=== PATIENT | female | born 1995 | race Caucasian/White ===

== ENCOUNTER → 2021-10-19 | Outpatient (CLI) | payer BC ==
--- NOTE | 2021-10-19 11:13 | Diagnostic Imaging Report ---
INDICATION: survey. TECHNIQUE: Multiple real-time grayscale images were obtained over the gravid uterus. COMPARISON: None FINDINGS: There is a single live fetus in a transverse presentation with head to maternal left. Placenta is anterior. Placenta appears to be in a marginal location in relation to the internal cervical os. Amniotic fluid volume is normal. Cervical length is 7 cm. kidneys, bladder and stomach are unremarkable. brain is unremarkable. There is a 4 chamber heart. There is a three-vessel cord with normal insertion. spine is unremarkable. Biometrical measurements are as follows: Biparietal 4.68 cm, age 20 weeks 2 days. Head circumference 18.17 cm, age 20 weeks 5 days. Abdominal circumference 15.11 cm, age 20 weeks 3 days. Femur length 3.44 cm, age 20 weeks 6 days. Sonographic estimate age: 20 weeks 4 days. Sonographic estimated date of delivery: 03/04/2022. Estimated Weight: 361 gm (+/- 53 gm). LMP percentile: 52%. heart rate: 156 beats per minute. number: 1 of 1. IMPRESSION: Single live IUP 20 weeks 4 days gestational age. Estimated date of confinement sonographically is 03/04/2022. Marginal placenta previa. Follow-up could be performed. Dictated by: Dictated on workstation # [id number]
== END ==
LOC: RAD 10:06
PROVIDERS: ATTEND Nurse Practitioner Women's Health
DX: Z34.02 Encounter for supervision of normal first pregnancy, second trimester (principal); Z3A.20 20 weeks gestation of pregnancy
CPT/HCPCS: 76805

== ENCOUNTER 2021-11-11 09:36 | Outpatient (CLI) | payer BC ==
[~2021-11-11] VITALS: Ht 162.6 cm; Wt 69.9 kg
[2021-11-11 09:56] VITALS: BP 116/77
[2021-11-11 10:09] LABS: BILIRUBIN,URINE NEGATIVE (NEGATIVE); CLARITY,URINE SL CLOUDY; COLOR,URINE YELLOW; GLUCOSE, URINE (UA) NEGATIVE (NEGATIVE); KETONES,URINE 2+ (NEGATIVE); LEUKOCYTE ESTERASE ,URINE NEGATIVE (NEGATIVE); NITRITE,URINE NEGATIVE (NEGATIVE); PROTEIN,URINE NEGATIVE (NEGATIVE)
[2021-11-11 10:22] LABS: BACTERIA,URINE FEW /HPF; WBC,URINE 0-2 /HPF
[2021-11-11] MEDS ORDERED: CYCLOBENZAPRINE 10 MG (FLEXERIL) TAB ONE (10:50)
[2021-11-11 10:52] VITALS: BP 106/65
[2021-11-11] MEDS ORDERED: CYCLOBENZAPRINE 10 MG (FLEXERIL) TAB PO ONE (11:00)
[2021-11-11 11:22] VITALS: BP 102/64
[2021-11-11 11:52] VITALS: BP 108/70
[2021-11-11] MEDS ORDERED: PREN-37 PO (12:19)
[2021-11-11] MEDS ORDERED: CYCL5TAB PO (12:21)
--- NOTE | 2021-11-14 08:22 | Physician Query-Final Dx ---
Clinic Account Progress/Dx Physician Query: Please give diagnosis Please include # weeks gestation Date of Service Nov 11, 2021 at 09:36 JOSE,NovNov 14, 2021 08:22
== END 2021-11-11 12:30 | disposition home or self-care (01) ==
LOC: WSo 09:36 → LDRP 09:38 → WSo 12:30
PROVIDERS: ATTEND Obstetrics & Gynecology
DX: O21.9 Vomiting of pregnancy, unspecified (principal); Z3A.23 23 weeks gestation of pregnancy
CPT/HCPCS: 81000; 87088; 99214

== ENCOUNTER → 2021-12-08 | Outpatient (CLI) | payer BC ==
[~2021-12-08] MED LIST: CYCL5TAB PO; PREN-37 PO
--- NOTE | 2021-12-08 13:15 | Diagnostic Imaging Report ---
INDICATION: Marginal placenta previa. TECHNIQUE: Multiple real-time grayscale images were obtained over the gravid uterus. COMPARISON: 10/19/2021. FINDINGS: There is a single live fetus in a breech presentation. heart rate was recorded at 153 bpm. Placenta is anterior. The placenta is no longer in a marginal location with the tip of the placenta to the internal os approximately 4.5 cm. Amniotic fluid volume appears normal. Cervical length is 6.0 cm. IMPRESSION: Unremarkable follow-up ultrasound. The placenta is no longer marginal in location. Dictated by: Dictated on workstation # [id number]
== END ==
LOC: RAD 12:00
PROVIDERS: ATTEND Nurse Practitioner Women's Health
DX: O44.22 Partial placenta previa NOS or without hemorrhage, second trimester (principal); Z3A.00 Weeks of gestation of pregnancy not specified
CPT/HCPCS: 76816

== ENCOUNTER → 2022-01-12 | Outpatient (CLI) | payer BC ==
--- NOTE | 2022-01-12 14:24 | Diagnostic Imaging Report ---
INDICATION: Small for gestational age based on fundal height COMPARISON: 10/19/2021 TECHNIQUE: Multiple real-time grayscale images were obtained over the gravid uterus. FINDINGS: There is a single live intrauterine gestation in cephalic presentation. The cervix measures 6 cm in length, but is partially shadowed by the head. No significant funneling is seen. The placenta is anterior without evidence of previa. The heart rate measures 144 BPM. The amniotic fluid index measures 12.5 cm. Measurements are given below. A three-vessel cord as well seen. Biometrical measurements are as follows: Biparietal 7.95 cm, age 32 weeks 0 days. Head circumference 29.76 cm, age 33 weeks 0 days. Abdominal circumference 28.31 cm, age 32 weeks 3 days. Femur length 6.27 cm, age 32 weeks 4 days. Sonographic estimate age: 32 weeks 4 days. Sonographic estimated date of delivery: 03/05/2022. Estimated Weight: 1966 gm (+/- 287 gm). LMP percentile: 34%. heart rate: 144 beats per minute. number: 1 of 1. IMPRESSION: 1. Single live intrauterine gestation measuring at 32 weeks and 4 days which is concordant with the clinical dates. 2. Heart rate and amniotic fluid are normal. Dictated by: Dictated on workstation # [id number]
== END ==
LOC: RAD 12:00
PROVIDERS: ATTEND Obstetrics & Gynecology
DX: O26.93 Pregnancy related conditions, unspecified, third trimester (principal); Z3A.32 32 weeks gestation of pregnancy
CPT/HCPCS: 76805

== ENCOUNTER 2022-02-10 12:11 | Inpatient (IN) | payer BC ==
[2022-02-10] VITALS (47 sets, daily range): BP systolic 98–145; BP diastolic 54–90
[~2022-02-10] VITALS: Ht 162 cm; Wt 72.0 kg
--- NOTE | 2022-02-10 13:05 | Diagnostic Imaging Report ---
INDICATION: Vaginal bleeding. TECHNIQUE: Multiple real-time grayscale images were obtained over the gravid uterus. COMPARISON: 01/12/2022. FINDINGS: A single live intrauterine gestation is visualized in cephalic presentation. heart tones measure 136 BPM. The placenta is anterior and not low lying. The TIERA measures 8 cm. Biometrical measurements are as follows: Biparietal 8.44 cm, age 34 weeks 0 days. Head circumference 31.52 cm, age 35 weeks 3 days. Abdominal circumference 30.14 cm, age 34 weeks 1 days. Femur length 6.59 cm, age 34 weeks 0 days. Sonographic estimate age: 34 weeks 3 days. Sonographic estimated date of delivery: 03/21/2022. Estimated Weight: 2368 gm (+/- 346 gm). LMP percentile: 6%. heart rate: 136 beats per minute. number: 1 of 1. The cervix is not well visualized due to lack of sonographic windows. IMPRESSION: 1. Single live intrauterine gestation measuring 34 weeks 3 days with an estimated due date of 03/21/2022. These are discordant with the clinical dates. Recommend continued follow-up, as indicated. 2. The cervix is not well visualized due to lack of sonographic windows. Dictated by: Dictated on workstation # [id number]
[2022-02-10 13:55] LABS: BILIRUBIN,URINE NEGATIVE (NEGATIVE); CLARITY,URINE CLEAR; COLOR,URINE YELLOW; GLUCOSE, URINE (UA) NEGATIVE (NEGATIVE); KETONES,URINE NEGATIVE (NEGATIVE); LEUKOCYTE ESTERASE ,URINE NEGATIVE (NEGATIVE); NITRITE,URINE NEGATIVE (NEGATIVE); PROTEIN,URINE NEGATIVE (NEGATIVE)
[2022-02-10] MEDS ORDERED: CATHETER FLUSH 10 ML SYR IV SCH (14:00)
[2022-02-10] MEDS ORDERED: LIDOCAINE/EPI 2% 1:200,00 (XYLOCAINE) 20 ML VIAL INJ PRN (14:00)
[2022-02-10] MEDS ORDERED: MINERAL OIL CONCENTRATE 99.9% 15 ML UDC TOP PRN (14:00)
[2022-02-10] MEDS ORDERED: MINERAL OIL 30 ML OIL TOP PRN (14:00)
[2022-02-10 14:15] LABS: BACTERIA,URINE TRACE /HPF; RBC,URINE RARE /HPF; SQUAMOUS EPITHELIAL CELL,UR 0-2 /HPF; WBC,URINE RARE /HPF
[2022-02-10] MEDS ORDERED: OXYTOCIN PRE-MIX DRIP 500 ML IV SCH (14:15)
[2022-02-10 14:17] LABS: AMPHETAMINE SCREEN, URINE NEGATIVE (NEGATIVE); BARBITURATE SCREEN URINE NEGATIVE (NEGATIVE); BENZODIAZEPINES SCREEN URINE NEGATIVE (NEGATIVE); CANNABINOID SCREEN, URINE NEGATIVE (NEGATIVE); COCAINE SCREEN URINE NEGATIVE (NEGATIVE); METHADONE STAT NEGATIVE (NEGATIVE); METHAMPHETAMINE SCREEN URINE S NEGATIVE (NEGATIVE); OPIATE SCREEN URINE NEGATIVE (NEGATIVE); OXYCODONE STAT NEGATIVE (NEGATIVE); PROPOXYPHENE STAT NEGATIVE (NEGATIVE); TRICYCLIC ANTIDEPRESSANTS SCRE NEGATIVE (NEGATIVE)
[2022-02-10 14:30] LABS: BASOPHILS % (AUTO) 1 % (0-10); EOSINOPHILS # (AUTO) 0.1 10^3/uL (0.0-0.3); EOSINOPHILS % (AUTO) 2 % (0-10); HEMATOCRIT 30 % (35-52); HEMOGLOBIN 9.5 g/dL (11.5-16.0); LYMPHOCYTES # (AUTO) 1.6 10^3/uL (1.0-4.0); LYMPHOCYTES % (AUTO) 23 % (12-44); MEAN CORPUSCULAR HEMOGLOBIN 30 pg (25-34); MEAN CORPUSCULAR HGB CONC 32 g/dL (32-36); MEAN CORPUSCULAR VOLUME 96 fL (80-99); MEAN PLATELET VOLUME 11.7 fL (9.0-12.2); MONOCYTES # (AUTO) 0.4 10^3/uL (0.0-1.0); MONOCYTES % (AUTO) 6 % (0-12); NEUTROPHILS # (AUTO) 4.6 10^3/uL (1.8-7.8); NEUTROPHILS % (AUTO) 67 % (42-75); PLATELET COUNT 198 10^3/uL (130-400); WHITE BLOOD COUNT 6.8 10^3/uL (4.3-11.0)
[2022-02-10 14:47] LABS: ALBUMIN 3.2 GM/DL (3.2-4.5); POTASSIUM 3.8 MMOL/L (3.6-5.0)
[2022-02-10 14:48] LABS: CALCIUM 8.9 MG/DL (8.5-10.1)
[2022-02-10 14:49] LABS: TOTAL PROTEIN 6.2 GM/DL (6.4-8.2)
[2022-02-10 14:51] LABS: BILIRUBIN,TOTAL 0.5 MG/DL (0.1-1.0)
[2022-02-10 14:53] LABS: CREATININE SERUM 0.59 MG/DL (0.60-1.30)
[2022-02-10] MEDS: D5 LR IV SOLUTION 1,000 ML IV SCH ×2 (14:56→22:19)
[2022-02-10] MEDS ORDERED: BETAMETHASONE ACE/NA PHOS 6 MG/ML (CELESTONE SOLUSPAN) IM NR (15:00)
--- NOTE | 2022-02-10 16:53 | History & Physical-OB ---
OB - Chief Complaint & HPI Date/Time Date of Admission: Date of Admission: Feb 10, 2022 at 13:38 Time Seen by a Provider: 03:40 Chief Complaint/History OB-Reason for Admission/Chief: Obstetrical Complication Hx : 2 Hx Para: 0101 Expected Date of Delivery: March 05, 2022 Gestational Age in Weeks: 36 Gestational Age in Days: 5 Indication for induction: other (third trimester bleeding with IUGR) Admission Nurse Assessment Rev: Yes Allergies and Home Medications Allergies Coded Allergies: acetaminophen (Verified Allergy, Unknown, 11/11/21) Patient Home Medication List Home Medication List Reviewed: Yes Cyclobenzaprine HCl (Cyclobenzaprine HCl) 5 Mg Tablet, 5 MG PO Q8H PRN for PAIN- MODERATE (5-7) Prescribed by: SHIVAM AYALA on 11/11/21 1221 Vit/Iron Fumarate/FA ( Tablet) 1 Each Tablet, 1 EACH PO DAILY, (Reported) Entered as Reported by: SHIVAM AYALA on 11/11/21 1219 OB - History Hx of Present Care: Yes Ultrasounds: Abnormal US findings (EFW 6th%) Obstetrical Complications: Growth Restriction Medical Complications: None Information Induced Hypertension: No Maternal Gestational Diabetes: No Hemorrhage: No Obstetrical History Hx Induced Hypertens: Yes ( severe preeclampsia ) Delivery History Hx Dystocia: No Hx Forceps Assisted Delivery: No Hx Vacuum Extraction Assisted: No Hx Placenta Abnormality: No Hx Distress: No Hx Large For Gestational Age I: No Hx Small for Gestational Age I: No Hx Section: No Hx Vaginal Delivery Post C-Sec: No Hx Blood Disorders: No Adverse Rxn to Tranfusion: No Patient Past Medical History denies Immunizations Influenza Vaccine Up-to-Date: No; Not Current Hepatitis A: No Hepatitis B: No OB - Admission Exam Physical Exam Vitals: Vital Signs 02/10/22 13:40 Pulse 85 Resp 18 B/P (MAP) 115/77 (90) Pulse Ox 100 HEENT: NCAT Lungs: Clear Abdomen: Gravid Extremities: Normal Cervical Dilatation: 2cm Effacement: Other (60) Station: -3 Membranes: Intact Amniotic Fluid: Clear Heart Rate: 130's Accelerations: Accelerations Present Short Term Variability: Present Nursing Home Variability: Average (6-25) Contractions on Admission: 6-10 Minutes Apart Labs Laboratory Tests Test 02/10/22 13:35 02/10/22 13:45 Range/Units White Blood Count 6.8 4.3-11.0 10^3/uL Red Blood Count 3.15 L 3.80-5.11 10^6/uL Hemoglobin 9.5 L 11.5-16.0 g/dL Hematocrit 30 L 35-52 % Mean Corpuscular Volume 96 80-99 fL Mean Corpuscular Hemoglobin 30 25-34 pg Mean Corpuscular Hemoglobin Concent 32 32-36 g/dL Red Cell Distribution Width 14.3 10.0-14.5 % Platelet Count 198 130-400 10^3/uL Mean Platelet Volume 11.7 9.0-12.2 fL Immature Granulocyte % (Auto) 1 % Neutrophils (%) (Auto) 67 42-75 % Lymphocytes (%) (Auto) 23 12-44 % Monocytes (%) (Auto) 6 0-12 % Eosinophils (%) (Auto) 2 0-10 % Basophils (%) (Auto) 1 0-10 % Neutrophils # (Auto) 4.6 1.8-7.8 10^3/uL Lymphocytes # (Auto) 1.6 1.0-4.0 10^3/uL Monocytes # (Auto) 0.4 0.0-1.0 10^3/uL Eosinophils # (Auto) 0.1 0.0-0.3 10^3/uL Basophils # (Auto) 0.0 0.0-0.1 10^3/uL Immature Granulocyte # (Auto) 0.1 0.0-0.1 10^3/uL Sodium Level 138 135-145 MMOL/L Potassium Level 3.8 3.6-5.0 MMOL/L Chloride Level 108 H 98-107 MMOL/L Carbon Dioxide Level 17 L 21-32 MMOL/L Anion Gap 13 5-14 MMOL/L Blood Urea Nitrogen 6 L 7-18 MG/DL Creatinine 0.59 L 0.60-1.30 MG/DL Estimat Glomerular Filtration Rate 127 BUN/Creatinine Ratio 10 Glucose Level 67 L 70-105 MG/DL Calcium Level 8.9 8.5-10.1 MG/DL Corrected Calcium 9.5 8.5-10.1 MG/DL Total Bilirubin 0.5 0.1-1.0 MG/DL Aspartate Amino Transf (AST/SGOT) 16 5-34 U/L Alanine Aminotransferase (ALT/SGPT) 9 0-55 U/L Alkaline Phosphatase 336 H 40-136 U/L Total Protein 6.2 L 6.4-8.2 GM/DL Albumin 3.2 3.2-4.5 GM/DL Urine Color YELLOW Urine Clarity CLEAR Urine pH 7.0 5-9 Urine Specific [place] 1.020 1.016-1.022 Urine Protein NEGATIVE NEGATIVE Urine Glucose (UA) NEGATIVE NEGATIVE Urine Ketones NEGATIVE NEGATIVE Urine Nitrite NEGATIVE NEGATIVE Urine Bilirubin NEGATIVE NEGATIVE Urine Urobilinogen 0.2 < = 1.0 MG/DL Urine Leukocyte Esterase NEGATIVE NEGATIVE Urine RBC (Auto) 1+ H NEGATIVE Urine RBC RARE /HPF Urine WBC RARE /HPF Urine Squamous Epithelial Cells 0-2 /HPF Urine Crystals NONE /LPF Urine Bacteria TRACE /HPF Urine Casts NONE /LPF Urine Mucus NEGATIVE /LPF Urine Culture Indicated NO Urine Opiates Screen NEGATIVE NEGATIVE Urine Oxycodone Screen NEGATIVE NEGATIVE Urine Methadone Screen NEGATIVE NEGATIVE Urine Propoxyphene Screen NEGATIVE NEGATIVE Urine Barbiturates Screen NEGATIVE NEGATIVE Ur Tricyclic Antidepressants Screen NEGATIVE NEGATIVE Urine Phencyclidine Screen NEGATIVE NEGATIVE Urine Amphetamines Screen NEGATIVE NEGATIVE Urine Methamphetamines Screen NEGATIVE NEGATIVE Urine Benzodiazepines Screen NEGATIVE NEGATIVE Urine Cocaine Screen NEGATIVE NEGATIVE Urine Cannabinoids Screen NEGATIVE NEGATIVE OB - Assessment/Plan/Diagnosis Assessment Assessment: induction of labor, vaginal bleeding Admission Dx 3rd trimester bleeding, IUGR Admission Status: Inpatient Order (span 2 midnights) Reason for Inpatient Admission: Induction of labor Counseled risks of prematurity Patient agrees risks of staying outweigh risks of prematurity with bleeding of unknown cause/source and IUGR Plan Plan: Induction Induction Method: JUSTYNA VALERIO MD Feb 10, 2022 16:53
[2022-02-10] MEDS ORDERED: fentaNYL 2 mcg/ml BUPIVA 0.125 100 ML ONE (19:09)
[2022-02-10] MEDS ORDERED: BUPIVACAINE 0.25% 10 ML (SENSORCAINE) VIAL ONE (19:31)
[2022-02-10] MEDS ORDERED: fentaNYL INJ 100 MCG/2 ML AMP ONE (19:31)
[2022-02-10] MEDS: fentaNYL 2 mcg/ml BUPIVA 0.125 100 ML IV SCH (19:51)
[2022-02-10] MEDS ORDERED: CATHETER FLUSH 10 ML SYR IV PRN (20:00)
[2022-02-10] MEDS ORDERED: NALOXONE 0.4 MG/ML 1 ML (NARCAN) VIAL IV PRN (20:00)
[2022-02-10] MEDS ORDERED: LACTATED RINGERS 1,000 ML IV ONE (20:00)
[2022-02-11] VITALS (52 sets, daily range): BP systolic 85–139; BP diastolic 48–81
[2022-02-11] MEDS: fentaNYL 2 mcg/ml BUPIVA 0.125 100 ML IV SCH (02:40)
[2022-02-11] MEDS: D5 LR IV SOLUTION 1,000 ML IV SCH ×2 (05:39→10:03)
[2022-02-11] MEDS ORDERED: OXYTOCIN PRE-MIX DRIP 500 ML IV SCH ×2 (06:45)
[2022-02-11] MEDS ORDERED: MEASLES,MUMPS,RUBELLA 1 EA INJ SQ ONE (06:45)
[2022-02-11] MEDS ORDERED: BENZOCAINE/MENTHOL (DERMOPLAST) 56 ML CAN TP PRN (06:45)
[2022-02-11] MEDS ORDERED: WITCH HAZEL(TUCKS) 40 EA JAR TOP PRN (06:45)
[2022-02-11] MEDS ORDERED: NALOXONE 0.4 MG/ML 1 ML (NARCAN) VIAL IV PRN (06:45)
[2022-02-11] MEDS ORDERED: TETANUS,DIPTH,PERTUSS P/F (BOOSTRIX) 0.5 ML VIAL IM ONE (06:45)
[2022-02-11] MEDS ORDERED: ONDANSETRON 4 MG/2 ML (SDV) Z0FRAN ONE (07:49)
[2022-02-11] MEDS ORDERED: ONDANSETRON 4 MG/2 ML (SDV) Z0FRAN IVP PRN (08:00)
[2022-02-11] MEDS ORDERED: LIDOCAINE/EPI 2% 1:200,00 (XYLOCAINE) 10 ML VIAL ONE (10:21)
--- NOTE | 2022-02-11 10:51 | OB Labor & Delivery Record ---
Vag Delivery Note Vag Delivery Note Date of Delivery: 02/11/22 Preoperative Diagnosis: Chaya Quigley is a (26 /Para 2 / 0101, Gestational Age (wks)36.6days with third trimester bleeding Postoperative Diagnosis: Same, suspected placental abruption Surgeon: JUSTYNA CURTIS Anesthesia: epidural Delivery Type: Spontaneous vaginal delivery Findings: [] Viable female infant, please see nurses notes for Apgars and weight Lacerations: None Intact placenta blood clots with 3 vessel cord. body cord or shoulder dystocia Cytotec 800 mcg placed for hemorrhage prophylaxis Estimated Blood Loss: 450 ml Complications: None Condition: Stable Description of Procedure: Prior presented to the clinic with complaints of 2 days of vaginal bleeding. On speculum exam vault was full of bright red and old blood. Mucousy blood from above the level of the cervix was visualized after clearing the vault. She was sent to labor and delivery for evaluation and heart tones were found to be reactive. Sonogram showed an anterior placenta without previa, normal amniotic fluid. And intrauterine growth restriction with estimated weight at the 6th percentile. Given the new finding of IUGR and vaginal bleeding recommend proceeding with induction for suspected placental abruption. Consent was obtained from the patient after review of risks and benefits including risks of prematurity and risks of induction. Artificial rupture membranes was performed with amnio hook revealing clear fluid and Pitocin induction was initiated. Epidural was placed per her request and she had slow cervical change to 9 cm. Evaluation of her cervix in the clinic had demonstrated defect at the 9 o'clock position and throughout her labor then corresponded to complete effacement at that segment with subsequent swelling of the anterior and left side of the patient's cervix. As she was having quite a bit of discomfort with pressure and contractions and the cervix was beginning to swell so significantly decision was made to do trial of pushing. She had effective pushing and delivered a female infant in the ROP position. Several blood clots delivered with the baby. Loose nuchal x1 was delivered through. Nose and mouth were suctioned was placed on the mom's abdomen. Several additional clots passed prior to delivery of the placenta. Cord blood was drawn and cord gases were sent. The placenta then delivered intact and slight uterine atony was encountered. Pitocin was started after clamping the umbilical cord and 800 mcg of Cytotec were placed per rectum. After changing into new sterile gloves and MU was performed removing small clots and uterine tone was achieved with continued fundal massage. No cervical lacerations were visualized no vaginal or perineal lacerations were visualized. Mom and baby tolerated the procedure well. Sponge lap needle and instrument counts were correct Vitals - Labs Vital Signs - I&O Vital Signs Date Time Temp Pulse Resp B/P (MAP) Pulse Ox O2 Delivery O2 Flow Rate FiO2 02/11/22 08:30 116 20 111/66 (81) Room Air 02/11/22 08:15 110 20 110/63 (79) Room Air 02/11/22 08:00 114 20 106/59 (75) Room Air 02/11/22 07:45 129 20 90/55 (67) Room Air 02/11/22 07:40 36.5 02/11/22 07:30 126 20 90/53 (65) Room Air 02/11/22 07:15 125 20 89/54 (66) Room Air 02/11/22 07:00 136 20 85/48 (60) Room Air 02/11/22 06:45 36.0 118 20 118/64 (82) Room Air 02/11/22 06:30 150 20 116/64 (81) Room Air 02/11/22 06:15 116 20 123/78 (93) Room Air 02/11/22 06:00 109 20 132/79 (96) Room Air 02/11/22 05:45 104 20 122/74 (90) Room Air 02/11/22 05:30 100 20 126/75 (92) Room Air 02/11/22 05:15 100 20 120/74 (89) Room Air 02/11/22 05:00 100 20 122/75 (91) Room Air 02/11/22 04:45 107 20 113/69 (84) Room Air 02/11/22 04:30 96 20 122/76 (91) Room Air 02/11/22 04:15 108 20 124/63 (83) Room Air 02/11/22 04:00 36.0 106 20 120/69 (86) Room Air 02/11/22 03:45 107 20 119/71 (87) Room Air 02/11/22 03:30 112 20 130/71 (90) Room Air 02/11/22 03:15 120 20 122/75 (91) Room Air 02/11/22 03:00 105 20 117/69 (85) Room Air 02/11/22 02:45 117 20 118/70 (86) Room Air 02/11/22 02:30 111 20 120/71 (87) Room Air 02/11/22 02:15 121 20 105/65 (78) Room Air 02/11/22 02:00 106 20 126/80 (95) Room Air 02/11/22 01:45 36.0 125 20 122/75 (91) Room Air 02/11/22 01:30 113 20 123/74 (90) Room Air 02/11/22 01:15 109 20 122/74 (90) Room Air 02/11/22 01:00 110 20 118/70 (86) Room Air 02/11/22 00:44 103 20 121/68 (85) Room Air 02/11/22 00:30 36.0 102 20 105/59 (74) Room Air 02/11/22 00:15 104 20 101/59 (73) Room Air 02/11/22 00:00 102 20 115/61 (79) Room Air 02/10/22 23:45 106 20 104/74 (84) Room Air 02/10/22 23:30 106 20 104/74 (84) Room Air 02/10/22 23:15 101 20 106/64 (78) Room Air 02/10/22 23:03 105 20 98/57 (71) Room Air 02/10/22 22:45 126 20 102/63 (76) Room Air 02/10/22 22:30 36.0 115 20 104/55 (71) Room Air 02/10/22 22:15 120 20 110/62 (78) Room Air 02/10/22 22:00 96 107/56 (73) 02/10/22 21:45 100 115/68 (84) 02/10/22 21:30 98 104/54 (71) 02/10/22 21:15 116 110/67 (81) 02/10/22 21:00 120 20 117/70 (86) 02/10/22 20:45 133 20 124/65 (84) 02/10/22 20:26 141 20 112/66 (81) 02/10/22 20:20 126 111/72 (85) 02/10/22 20:17 133 120/62 (81) 02/10/22 20:10 136 123/73 (90) 02/10/22 20:02 121 119/63 (81) 02/10/22 20:00 127 113/58 (76) 02/10/22 19:55 37.4 121 138/62 (87) 99 02/10/22 19:51 115 20 132/69 (90) 100 Room Air 02/10/22 19:50 134 20 131/74 (93) 100 Room Air 02/10/22 19:45 115 130/76 (94) 100 Room Air 02/10/22 19:43 144 145/87 (106) 100 Room Air 02/10/22 19:38 117 133/89 (104) 100 Room Air 02/10/22 19:33 119 20 126/83 (97) 100 Room Air 02/10/22 18:45 103 122/80 (94) Room Air 02/10/22 18:30 104 20 121/81 (94) Room Air 02/10/22 18:15 36.9 97 20 123/74 (90) Room Air 02/10/22 18:00 113 117/82 (94) Room Air 02/10/22 17:45 103 122/80 (94) Room Air 02/10/22 17:30 101 120/80 (93) Room Air 02/10/22 17:15 103 20 125/83 (97) Room Air 02/10/22 17:00 103 20 121/78 (92) Room Air 02/10/22 16:45 108 20 125/85 (98) Room Air 02/10/22 16:30 98 132/84 (100) Room Air 02/10/22 16:15 101 127/80 (96) Room Air 02/10/22 16:00 37.0 110 131/85 (100) 100 Room Air 02/10/22 15:50 95 138/90 (106) 02/10/22 15:45 108 20 144/85 (104) 02/10/22 15:20 104 20 135/77 (96) 02/10/22 15:05 107 20 131/88 (102) 02/10/22 14:50 106 20 128/87 (101) 02/10/22 14:40 107 20 122/83 (96) 02/10/22 14:18 36.5 98 20 134/86 (102) 02/10/22 13:40 85 18 115/77 (90) 100 02/10/22 12:40 96 129/71 (90) I & O 02/11/22 07:00 Intake Total 2100 ml Balance 2100 ml Labs Laboratory Tests 02/10/22 13:35: White Blood Count 6.8, Red Blood Count 3.15L, Hemoglobin 9.5L, Hematocrit 30L, Mean Corpuscular Volume 96, Mean Corpuscular Hemoglobin 30, Mean Corpuscular Hemoglobin Concent 32, Red Cell Distribution Width 14.3, Platelet Count 198, Mean Platelet Volume 11.7, Immature Granulocyte % (Auto) 1, Neutrophils (%) (Auto) 67, Lymphocytes (%) (Auto) 23, Monocytes (%) (Auto) 6, Eosinophils (%) (Auto) 2, Basophils (%) (Auto) 1, Neutrophils # (Auto) 4.6, Lymphocytes # (Auto) 1.6, Monocytes # (Auto) 0.4, Eosinophils # (Auto) 0.1, Basophils # (Auto) 0.0, Immature Granulocyte # (Auto) 0.1, Sodium Level 138, Potassium Level 3.8, Chloride Level 108H, Carbon Dioxide Level 17L, Anion Gap 13, Blood Urea Nitrogen 6L, Creatinine 0.59L, Estimat Glomerular Filtration Rate 127, BUN/Creatinine Ratio 10, Glucose Level 67L, Calcium Level 8.9, Corrected Calcium 9.5, Total Bilirubin 0.5, Aspartate Amino Transf (AST/SGOT) 16, Alanine Aminotransferase (ALT/SGPT) 9, Alkaline Phosphatase 336H, Total Protein 6.2L, Albumin 3.2 02/10/22 13:45: Urine Color YELLOW, Urine Clarity CLEAR, Urine pH 7.0, Urine Specific [place] 1.020, Urine Protein NEGATIVE, Urine Glucose (UA) NEGATIVE, Urine Ketones NEGATIVE, Urine Nitrite NEGATIVE, Urine Bilirubin NEGATIVE, Urine Urobilinogen 0.2, Urine Leukocyte Esterase NEGATIVE, Urine RBC (Auto) 1+H, Urine RBC RARE, Urine WBC RARE, Urine Squamous Epithelial Cells 0-2, Urine Crystals NONE, Urine Bacteria TRACE, Urine Casts NONE, Urine Mucus NEGATIVE, Urine Culture Indicated NO, Urine Opiates Screen NEGATIVE, Urine Oxycodone Screen NEGATIVE, Urine Methadone Screen NEGATIVE, Urine Propoxyphene Screen NEGATIVE, Urine Barbiturates Screen NEGATIVE, Ur Tricyclic Antidepressants Screen NEGATIVE, Urine Phencyclidine Screen NEGATIVE, Urine Amphetamines Screen NEGATIVE, Urine Methamphetamines Screen NEGATIVE, Urine Benzodiazepines Screen NEGATIVE, Urine Cocaine Screen NEGATIVE, Urine Cannabinoids Screen NEGATIVE JUSTYNA CURTIS MD Feb 11, 2022 10:51
[2022-02-11] MEDS: IBUPROFEN 600 MG (MOTRIN) TAB PO SCH ×3 (11:41→23:37)
[2022-02-11] MEDS: ACETAMINOPHEN 500 MG TAB (TYLENOL) PO SCH ×2 (12:00→20:23)
[2022-02-11] MEDS ORDERED: CATHETER FLUSH 10 ML SYR IV SCH (14:00)
[2022-02-11] MEDS ORDERED: BETAMETHASONE ACE/NA PHOS 6 MG/ML (CELESTONE SOLUSPAN) IM NR (15:00)
[2022-02-11 16:24] LABS: HEMOGLOBIN 8.8 g/dL (11.5-16.0)
[2022-02-11] MEDS ORDERED: DIBUCAINE 1% OINTMENT 30 GM TUBE TOP PRN (19:15)
[2022-02-11] MEDS ORDERED: DIBUCAINE 1% OINTMENT 30 GM TUBE ONE (20:19)
[2022-02-11] MEDS: DOCUSATE SODIUM 100 MG (COLACE) CAP PO SCH (20:22)
[2022-02-12 00:10] VITALS: BP 115/59
[2022-02-12 04:00] VITALS: BP 129/60
[2022-02-12] MEDS: IBUPROFEN 600 MG (MOTRIN) TAB PO SCH ×4 (05:47→23:52)
[2022-02-12] MEDS: ACETAMINOPHEN 500 MG TAB (TYLENOL) PO SCH ×2 (05:47→06:02)
[2022-02-12] MEDS: DOCUSATE SODIUM 100 MG (COLACE) CAP PO SCH ×3 (06:01→23:52)
[2022-02-12 06:15] LABS: BASOPHILS % (AUTO) 0 % (0-10); EOSINOPHILS # (AUTO) 0.2 10^3/uL (0.0-0.3); EOSINOPHILS % (AUTO) 1 % (0-10); HEMATOCRIT 25 % (35-52); LYMPHOCYTES # (AUTO) 2.1 10^3/uL (1.0-4.0); LYMPHOCYTES % (AUTO) 17 % (12-44); MEAN CORPUSCULAR HEMOGLOBIN 31 pg (25-34); MEAN CORPUSCULAR HGB CONC 33 g/dL (32-36); MEAN CORPUSCULAR VOLUME 97 fL (80-99); MEAN PLATELET VOLUME 11.6 fL (9.0-12.2); MONOCYTES # (AUTO) 0.7 10^3/uL (0.0-1.0); MONOCYTES % (AUTO) 6 % (0-12); NEUTROPHILS # (AUTO) 9.4 10^3/uL (1.8-7.8); NEUTROPHILS % (AUTO) 75 % (42-75); PLATELET COUNT 172 10^3/uL (130-400); WHITE BLOOD COUNT 12.6 10^3/uL (4.3-11.0)
[2022-02-12 08:15] VITALS: BP 121/71
[2022-02-12] MEDS ORDERED: IBUP-844 PO (08:17)
--- NOTE | 2022-02-12 08:22 | Postpartum Progress Note ---
Note Note Day # [1] Subjective: Patient is without complaints. Ambulating, voiding. Tolerating a regular diet without nausea or vomiting. Normal lochia. Pain is well controlled with oral pain medications. [] feeding. [] only pain is her hemorrhoid - using tucks and ice packs Objective: [] Physical Exam: General - Alert and oriented, no apparent distress Abdomen - Soft, appropriately tender to palpation, non-distended, fundus firm at umbilicus Extremities - no edema, negative Girish's bilaterally Assessment: [] post- day # [1], status post [] vaginal delivery. Recovering well, hemodynamically stable Plan: Routine care. Encourage breast feeding. Encourage ambulation. Ferrous sulfate supplementation. Plan for discharge [today depending on status] Vitals - Labs Vital Signs - I&O Vital Signs Date Time Temp Pulse Resp B/P (MAP) Pulse Ox O2 Delivery O2 Flow Rate FiO2 02/12/22 04:00 36.5 85 18 129/60 (83) 99 Room Air 02/12/22 00:10 36.9 75 18 115/59 (77) 99 Room Air 02/11/22 20:48 36.9 86 18 133/81 (98) 99 Room Air 02/11/22 16:00 36.5 99 18 131/79 (96) 99 Room Air 02/11/22 12:13 106 20 126/78 (94) Room Air 02/11/22 11:59 123 20 129/78 (95) Room Air 02/11/22 11:43 122 20 126/76 (93) Room Air 02/11/22 11:30 121 20 123/73 (90) Room Air 02/11/22 11:15 37.6 113 20 120/80 (93) Room Air 02/11/22 11:00 125 20 130/65 (86) Room Air 02/11/22 10:45 123 20 139/63 (88) Room Air 02/11/22 10:30 139 20 127/61 (83) Room Air 02/11/22 10:15 122/59 (80) 02/11/22 10:00 133 20 122/56 (78) Room Air 02/11/22 09:45 160 20 114/59 (77) Room Air 02/11/22 09:30 127 20 116/74 (88) Room Air 02/11/22 09:15 121 20 114/75 (88) Room Air 02/11/22 09:00 114 20 111/72 (85) Room Air 02/11/22 08:45 36.6 134 20 123/66 (85) Room Air 02/11/22 08:30 116 20 111/66 (81) Room Air I & O 02/12/22 07:00 Intake Total 1550 ml Balance 1550 ml Labs Laboratory Tests 02/11/22 16:15: Hemoglobin 8.8L, Hematocrit 27L 02/12/22 05:32: Hemoglobin 8.0L, Hematocrit 25L, White Blood Count 12.6H, Red Blood Count 2.55L, Mean Corpuscular Volume 97, Mean Corpuscular Hemoglobin 31, Mean Corpuscular Hemoglobin Concent 33, Red Cell Distribution Width 14.5, Platelet Count 172, Mean Platelet Volume 11.6, Immature Granulocyte % (Auto) 1, Neutrophils (%) (Auto) 75, Lymphocytes (%) (Auto) 17, Monocytes (%) (Auto) 6, Eosinophils (%) (Auto) 1, Basophils (%) (Auto) 0, Neutrophils # (Auto) 9.4H, Lymphocytes # (Auto) 2.1, Monocytes # (Auto) 0.7, Eosinophils # (Auto) 0.2, Basophils # (Auto) 0.0, Immature Granulocyte # (Auto) 0.1 JUSTYNA CURTIS MD Feb 12, 2022 08:22
--- NOTE | 2022-02-12 08:55 | Anesthesia-Regional Post-Op ---
Regional Patient Condition Mental Status: Alert, Oriented x3 Circulation: Same as Pre-Op Headache: Absent Sensation: Full Recovery Motor Block: Absent Post Op Complications Complications None Follow Up Care/Instructions Patient Instructions None needed. Anesthesia/Patient Condition Patient is doing well, no complaints, stable vital signs, no apparent adverse anesthesia problems. No complications reported per nursing. D/C home per [facility] [place] Criteria: Yes ASTON CARDOZA CRNA Feb 12, 2022 08:55
[2022-02-12 12:00] VITALS: BP 114/77
[2022-02-12 16:15] VITALS: BP 117/78
[2022-02-12 23:51] VITALS: BP 125/80
[2022-02-13 05:08] VITALS: BP 122/72
[2022-02-13] MEDS: IBUPROFEN 600 MG (MOTRIN) TAB PO SCH ×2 (05:09→10:32)
[2022-02-13 10:30] VITALS: BP 128/88
[2022-02-13] MEDS: DOCUSATE SODIUM 100 MG (COLACE) CAP PO SCH (10:32)
--- NOTE | 2022-02-14 10:53 | Physician Query Clarification ---
PQ-Intro New Diagnosis Admission/Discharge Admission Date: Feb 10, 2022 at 13:38 Discharge Date: Feb 13, 2022 at 17:30 Dr. Curtis, The medical record reflects the following clinical scenario: History/Risk Factors: placenta abruption, 3rd trimester bleeding Clinical Findings: 36.6 weeks at time of delivery Treatment: Question: What condition best reflects the above clinical scenario? delivery Please document a response in the Progress Noter or Discharge Summary. 1. delivery 2. Term delivery 3. Other, with explanation of the clinical findings. 4. Clinically undetermined, no explanation for the clinical findings. Please remember a lack of response to the above will prompt a phone page by [facility]/Coding staff. In responding to this query, please exercise your independent professional judgment. The purpose of this communication is to more accurately reflect the complexity of your patients condition. The fact that a question is asked does not imply that any particular answer is desired or expected. Thank you for your timely response to this clarification. Requestors name: Soledad THIS PHYSICIAN QUERY FORM IS A PERMANENT PART OF THE MEDICAL RECORD SOLEDAD DE LA ROSA Feb 14, 2022 10:53 JUSTYNA CURTIS MD Feb 16, 2022 07:25
--- NOTE | 2022-02-14 11:01 | Physician Query Clarification ---
PQ-Intro New Diagnosis Admission/Discharge Admission Date: Feb 10, 2022 at 13:38 Discharge Date: Feb 13, 2022 at 17:30 Dr. Curtis, The medical record reflects the following clinical scenario: History/Risk Factors: placenta abruption, 3rd trimester bleeding Clinical Findings: hgb/hct 9.5/30>8.0/25 Treatment: ferrous sulfate Question: What condition best reflects the above clinical scenario? Please document a response in the Progress Noter or Discharge Summary. 1. acute blood loss anemia 2. no anemia 3. Other, with explanation of the clinical findings. 4. Clinically undetermined, no explanation for the clinical findings. PHYSICIAN RESPONSE What condition reflects above: Other, explanation/clinical finding (acute blood loss anemi superimposed gestational anemia) Please remember a lack of response to the above will prompt a phone page by [facility] staff. In responding to this query, please exercise your independent professional judgment. The purpose of this communication is to more accurately reflect the complexity of your patients condition. The fact that a question is asked does not imply that any particular answer is desired or expected. Thank you for your timely response to this clarification. Requestors name: Soledad THIS PHYSICIAN QUERY FORM IS A PERMANENT PART OF THE MEDICAL RECORD SOLEDAD DE LA ROSA Feb 14, 2022 11:01 JUSTYNA CURTIS MD Feb 15, 2022 09:08
--- NOTE | 2022-02-16 07:30 | Progress Note ---
Standard Progress Note Progress Notes/Assess & Plan Date Seen by a Provider: Feb 13, 2022 Time Seen by a Provider: 08:10 Progress/Assessment & Plan Subjective Patient states pain is well controlled tolerating p.o. lochia is reduced. Bottlefeeding. Only complaint is pain at her hemorrhoid. Denies blood in stools Objective General alert noted x3 in no acute distress resting comfortably in the bed Chest is nonlabored Abdomen fundus is firm nontender Extremities are nontender Assessment s/p at 36.6wks with placental abruption day 2 doing well Plan 1. Anticipate dismissal home today with routine follow-up in the office 2. Briefly discussed contraceptive options and will consider and initiate at her 6-week visit 3. external hemorrhoid continues to be the source of her discomfort. Discussed witch erik pads and sitz baths and ensuring looser stools JUSTYNA CURTIS MD Feb 16, 2022 07:30
--- NOTE | 2022-02-23 07:04 | Short Stay Summary ---
Discharge Summary Hospital Course Was the Problem List Reviewed?: Yes Final Diagnosis: s/p 36.5wks with placental abruption Hospital Course Date of Admission: Feb 10, 2022 at 13:38 Admission Diagnosis : Family Physician/Provider: Kristie Coffman DO Date of Discharge: 02/23/22 Discharge Diagnosis: [Status post spontaneous vaginal delivery at 36 weeks and 6 days gestation with placental abruption with IUGR] Hospital Course: [Prior was sent from the office following evaluation for vaginal bleeding. Vaginal vault was found to have bright red blood with bleeding coming from the cervical os. She was sent to labor and delivery for further evaluation. Nonstress test was reactive. Sonogram failed to identify source of bleeding however estimated weight 6th percentile consistent with intrauterine growth restriction. Decision was made to proceed with delivery. She had induction with successful vaginal delivery and an unremarkable stay] Labs and Pending Lab Test: Home Meds Active Ibu (Ibuprofen) 600 Mg Tablet 600 Mg PO Q6HR 10 Days Cyclobenzaprine HCl 5 Mg Tablet 5 Mg PO Q8H PRN Reported Tablet ( Vit/Iron Fumarate/FA) 1 Each Tablet 1 Each PO DAILY Assessment/Pt Instructions stable see discharge instructions and med rec Discharge Instructions Discharge Diet: No Restrictions Activity as Tolerated: Yes Discharge Physical Examination General Appearance: Alert, Oriented X3 HEENT: Atraumatic Abdominal: Soft, No Tenderness Allergies: Coded Allergies: acetaminophen (Verified Allergy, Unknown, 11/11/21) Discharge Summary Date of Admission Feb 10, 2022 at 13:38 Date of Discharge Feb 13, 2022 at 17:30 Discharge Date: Feb 13, 2022 Admission Diagnosis 36.5wks with third trimester bleeding JUSTYNA CURTIS MD Feb 23, 2022 07:04
== END 2022-02-13 17:30 | disposition home or self-care (01) | DRG 806 ==
LOC: WSo 12:11 → LDRP 12:11 → WSo 13:38 → LDRP 13:38
PROVIDERS: ADMIT Obstetrics & Gynecology; ATTEND Obstetrics & Gynecology
PROC: 10E0XZZ Delivery of Products of Conception, External Approach (ICD-10-PCS; principal; 2022-02-11)
PROC: 10907ZC Drainage of Amniotic Fluid, Therapeutic from Products of Conception, Via Natural or Artificial Opening (ICD-10-PCS; 2022-02-11)
DX: O45.93 Premature separation of placenta, unspecified, third trimester (principal); D62 Acute posthemorrhagic anemia; Z37.0 Single live birth; O36.5930 Maternal care for other known or suspected poor fetal growth, third trimester, not applicable or unspecified; O75.89 Other specified complications of labor and delivery; O69.81X0 Labor and delivery complicated by cord around neck, without compression, not applicable or unspecified; O99.02 Anemia complicating childbirth; D64.9 Anemia, unspecified; O90.81 Anemia of the puerperium; Z3A.36 36 weeks gestation of pregnancy; Z88.6 Allergy status to analgesic agent
CPT/HCPCS: 36415; 76805; 80053; 80306; 81000; 83033; 85014; 85018; 85025; 86850; 86870; 86900; 86901